=== PATIENT | female | born 1995 | race African-American/Black ===

== ENCOUNTER 2025-04-30 23:37 | Emergency (ER) | payer SELFPAY ==
[2025-04-30 23:44] VITALS: BP 119/74; PULSE 82; RESP 20; TEMP 98.6; BMI 22.1
[2025-05-01] MEDS ORDERED: ACETAMINOPHEN 500 MG TABLET (FP) ONE (00:21)
[2025-05-01] MEDS ORDERED: LIDOCAINE 5% TOPICAL PATCH ONE (00:22)
[2025-05-01] MEDS: ACETAMINOPHEN 500 MG TABLET (FP) PO ONE (00:40)
[2025-05-01] MEDS: LIDOCAINE 5% TOPICAL PATCH TP ONE (00:40)
[2025-05-01 00:45] LABS: URINE APPEARANCE CLEAR; URINE BILIRUBIN NEGATIVE (NEGATIVE); URINE COLOR YELLOW; URINE GLUCOSE (UA) NEGATIVE (NEGATIVE); URINE KETONE NEGATIVE (NEGATIVE); URINE LEUK ESTERASE NEGATIVE (NEGATIVE); URINE NITRITE NEGATIVE (NEGATIVE); URINE PROTEIN NEGATIVE (NEGATIVE); URINE UROBILINOGEN 1.0 mg/dL (0.2-1.0)
[2025-05-01] MEDS ORDERED: LIDOCAINE PATCH REMOVAL MC SCH (22:00)
== END 2025-05-01 01:56 | disposition home or self-care (01) ==
LOC: JER 23:37
DX: R10.A2 Flank pain, left side (principal); R10.32 Left lower quadrant pain
CPT/HCPCS: 81003; 84703; 87086; 99283-25